=== PATIENT | female | born 2000 | race Caucasian/White ===

== ENCOUNTER 2022-01-14 03:23 | Emergency (ER) | payer OTHER ==
--- NOTE | 2022-01-14 03:30 | ED General ---
General Stated Complaint: LOW R ABD PAIN,BLOOD IN URINE History of Present Illness Date Seen by Provider: Jan 14, 2022 Time Seen by Provider: 03:27 Allergies and Home Medications Patient Home Medication List Home Medication List Reviewed: Yes Physical Exam Vital Signs Capillary Refill : Height, Weight, BMI Height: '" Weight: lbs. oz. kg; BMI Method: Progress/Results/Core Measures Suspected Sepsis SIRS Temperature: Pulse: Respiratory Rate: Blood Pressure / Mean: Results/Orders Vital Signs/I&O Capillary Refill : Departure Departure-Patient Inst. Referrals: NO,LOCAL PHYSICIAN (PCP/Family) Primary Care Physician MAXIMUS FAIR MD Jan 14, 2022 03:30
== END 2022-01-14 03:49 | disposition left against medical advice (07) ==
LOC: EDUNIT# 03:23 → ER 03:29
DX: R10.31 Right lower quadrant pain (principal); R31.9 Hematuria, unspecified

== ENCOUNTER → 2022-03-23 | Outpatient (CLI) | payer BC ==
--- NOTE | 2022-03-23 17:46 | Diagnostic Imaging Report ---
INDICATION: Lower abdominal pain. FINDINGS: The bowel gas pattern is unremarkable. There is no abnormal fecal loading. No suspicious calcifications. No radiographically apparent organomegaly or mass effect. Visualized lung bases and bony structures are unremarkable. IMPRESSION: Normal abdominal radiograph. Dictated by: Dictated on workstation # [id number]
== END ==
LOC: RAD 17:34
PROVIDERS: ATTEND Registered Nurse Critical Care Medicine
DX: N39.0 Urinary tract infection, site not specified (principal); K25.9 Gastric ulcer, unspecified as acute or chronic, without hemorrhage or perforation
CPT/HCPCS: 74018